=== PATIENT | female | born 1975 | race Caucasian/White ===

== ENCOUNTER 2017-02-17 00:05 | Emergency (ER) | payer BC ==
[~2017-02-17] VITALS: Ht 162.6 cm; Wt 81.6 kg
[2017-02-17 00:30] VITALS: BP 130/71
[2017-02-17] MEDS ORDERED: IBUPROFEN 400 MG TABLET. PO ONE (00:45)
[2017-02-17] MEDS ORDERED: HYDROCODONE/APAP 5/325MG TABLET. PO ONE (00:45)
--- NOTE | 2017-02-17 01:07 | PHYS DOC ---
Past Medical History Past Medical History: No Pertinent History Past Surgical History: No Surgical History Additional Information: 0.5 PPD Alcohol Use: None Drug Use: None Adult General Chief Complaint Chief Complaint: LOWEREXTREMITY INJURY [facility] HPI Patient is a 41 year old female who presents with right foot pain worse than left foot pain after she was driving down 2 stairs by her dog. Her daughter was on a leash and started chasing a squirrel. She notes progressive worsening of her right foot pain associated with some swelling. Pain is achy, constant, worse with walking. She denies numbness, tingling, weakness. She has been limping due to pain. Review of Systems Review of Systems Constitutional: Denies fever or chills [] Eyes: Denies change in visual acuity, redness, or eye pain [] HENT: Denies nasal congestion or sore throat [] Respiratory: Denies cough or shortness of breath [] Cardiovascular: No additional information not addressed in HPI [] GI: Denies abdominal pain, nausea, vomiting, bloody stools or diarrhea [] : Denies dysuria or hematuria [] Musculoskeletal: Denies back pain [] Integument: Denies rash or skin lesions [] Neurologic: Denies headache, focal weakness or sensory changes [] Endocrine: Denies polyuria or polydipsia [] Current Medications Current Medications Current Medications Medications (Trade) Dose Ordered Sig/Luis Start Time Stop Time Status Last Admin Dose Admin Acetaminophen/ Hydrocodone Bitart (Lortab 5/325) 2 tab 1X ONCE 02/17/17 00:45 02/17/17 00:46 UNV Ibuprofen (Motrin) 400 mg 1X ONCE 02/17/17 00:45 02/17/17 00:46 UNV Allergies Allergies Allergies Coded Allergies Type Severity Reaction Last Updated Verified No Known Drug Allergies 02/17/17 No Physical Exam Physical Exam Constitutional: Well developed, well nourished, no acute distress, non-toxic appearance. [] HENT: Normocephalic, atraumatic, bilateral external ears normal, oropharynx moist, nose normal. [] Eyes: PERRLA, EOMI. [] Neck: Normal range of motion, supple. [] Cardiovascular:Heart rate regular rhythm [] Lungs & Thorax: Bilateral breath sounds clear to auscultation [] Abdomen: Bowel sounds normal, soft, no tenderness. [] Skin: Warm, dry, no erythema, no rash. [] Back: No tenderness, no CVA tenderness. [] Extremities: Right lower extremity and left lower extremity with no obvious deformity or discoloration; Has tenderness about dorsum of medial and lateral feet without specific bony tenderness, this is worse on the right; Able to flex/ ex/IR/ER hip, knee full rom, ankle df/pf, toes df/pf; SILT stringer/sa/sp/dp/tib distributions; good dp and pt pulses equal bilaterally Neurologic: Alert and oriented X 3, normal motor function, normal sensory function, no focal deficits noted. [] Psychologic: Affect normal, judgement normal, mood normal. [] Current Patient Data Vital Signs Vital Signs Date Time Temp Pulse Resp B/P Pulse Ox O2 Delivery O2 Flow Rate FiO2 02/17/17 00:30 98.0 78 16 98 Room Air 98.0 Radiology/Procedures Radiology/Procedures Right foot x-ray as interpreted by me as no acute fracture or dislocation Course & Med Decision Making Course & Med Decision Making Pertinent Labs and Imaging studies reviewed. (See chart for details) Discussed supportive care. Return precautions given. She understands and agrees with plan. Dragon Disclaimer Dragon Disclaimer This electronic medical record was generated, in whole or in part, using a voice recognition dictation system. Departure Departure Impression: Primary Impression: Right foot pain Additional Impression: Left foot pain Disposition: 01 HOME, SELF-CARE Condition: STABLE Referrals: JOSE FROST MD (PCP) Patient Instructions: Contusion, [id number] Additional Instructions: Take Tylenol or ibuprofen as needed for pain. Use ice to help with pain and swelling. Follow-up with your primary care doctor. Return for any concerns. Problem Qualifiers Jenni CAMARGO MD Feb 17, 2017 01:07
[2017-02-17] MEDS ORDERED: HYDROCODONE/APAP 5/325MG TABLET. ONE (01:25)
--- NOTE | 2017-02-17 07:15 | RAD ---
Portable right foot, 3 views, 02/17/2017: History: Foot pain, injury No fracture or dislocation is identified. There is a small inferior calcaneal spur. Subcutaneous edema is present. IMPRESSION: No acute bony abnormality is detected.
== END 2017-02-17 01:29 | disposition home or self-care (01) ==
LOC: ER 00:05
DX: M79.671 Pain in right foot (principal); M79.672 Pain in left foot; F17.200 Nicotine dependence, unspecified, uncomplicated; X58.XXXA Exposure to other specified factors, initial encounter; Y93.89 Activity, other specified; Y99.8 Other external cause status; Y92.89 Other specified places as the place of occurrence of the external cause
CPT/HCPCS: 73630; 99284

== ENCOUNTER → 2017-10-30 | Outpatient (CLI) | payer BC | END | disposition home or self-care (01) | LOC: MAMMO 09:37 | DX: Z12.31 Encounter for screening mammogram for malignant neoplasm of breast (principal) | CPT/HCPCS: 77067 ==

== ENCOUNTER → 2017-11-24 | Outpatient (CLI) | payer BC | END | disposition home or self-care (01) | LOC: RAD 09:42 | DX: S59.802A Other specified injuries of left elbow, initial encounter (principal); X58.XXXA Exposure to other specified factors, initial encounter; Y93.89 Activity, other specified; Y92.89 Other specified places as the place of occurrence of the external cause; Y99.8 Other external cause status | CPT/HCPCS: 73080 ==

== ENCOUNTER → 2018-06-16 | Outpatient (CLI) | payer BC ==
--- NOTE | 2018-06-16 13:51 | RAD ---
ANKLE LEFT 3V History: LEFT ANKLE PAIN AND SWELLING, patient heard a pop while walking dog one week ago Comparison: None. Findings: 3 views of the left ankle are submitted. No acute fracture or dislocation is identified. There are dorsal and plantar calcaneal enthesophytes. Tibiotalar joint space is maintained. Ossific body near the tip of the medial malleolus is more likely degenerative in etiology. Impression: 1. No acute fracture is identified. Electronically signed by: Rj Lewsi MD (06/16/2018 1:48 PM) [id number]
== END | disposition home or self-care (01) ==
LOC: RAD 13:02
PROVIDERS: ATTEND Family Medicine
DX: M77.52 Other enthesopathy of left foot and ankle (principal); Z87.891 Personal history of nicotine dependence
CPT/HCPCS: 73610

== ENCOUNTER → 2019-11-16 | Outpatient (CLI) | payer BC ==
--- NOTE | 2019-11-16 16:33 | KCIC ---
Examination: EXT NON VASC RIGHT History: Palpable lump in the popliteal fossa Comparison/Correlation: None Findings: Ultrasound examination of the popliteal fossa bilaterally was performed. Imaging was primarily performed in the right popliteal fossa. Limited imaging of the left popliteal fossa for comparison purposes was performed. Right popliteal cyst measuring 7 cm x 1 cm x 2.7 cm present with internal echoes within it. Left popliteal cyst measuring 4.5 cm x 1.7 cm x 2.8 cm is present also with internal echoes. No abnormal flow on color Doppler imaging. No solid suspicious mass component. Impression: Bilateral popliteal cysts greater on the right. No suspicious findings. Electronically signed by: Josh Andres MD (11/16/2019 4:30 PM) [facility]
--- NOTE | 2019-12-20 10:13 | KCIC ---
Examination: EXT NON VASC RIGHT History: Palpable lump in the popliteal fossa Comparison/Correlation: None Findings: Ultrasound examination of the popliteal fossa bilaterally was performed. Imaging was primarily performed in the right popliteal fossa. Limited imaging of the left popliteal fossa for comparison purposes was performed. Right popliteal cyst measuring 7 cm x 1 cm x 2.7 cm present with internal echoes within it. Left popliteal cyst measuring 4.5 cm x 1.7 cm x 2.8 cm is present also with internal echoes. No abnormal flow on color Doppler imaging. No solid suspicious mass component. Impression: Bilateral popliteal cysts greater on the right. No suspicious findings. MTDD
== END | disposition home or self-care (01) ==
LOC: KCIC US 16:09
PROVIDERS: ATTEND Family Medicine
DX: M71.22 Synovial cyst of popliteal space [Baker], left knee (principal); M71.21 Synovial cyst of popliteal space [Baker], right knee
CPT/HCPCS: 76881; 76882

== ENCOUNTER → 2021-04-03 | Outpatient (CLI) | payer BC | LOC: SPEC 11:32 | PROVIDERS: ATTEND Obstetrics & Gynecology | DX: N77.1 Vaginitis, vulvitis and vulvovaginitis in diseases classified elsewhere (principal) | CPT/HCPCS: Q0111 ==